=== PATIENT | male | born 1960 | race Two or more races ===

== ENCOUNTER → 2024-08-14 | Outpatient (CLI) | payer BC, OTHER, SELFPAY ==
--- NOTE | 2024-08-14 15:00 | XR_ITS ---
Examination: Abdomen sonogram, complete Date and time of exam: August 06, 2024 1446 hours INDICATIONS: Abnormal liver functions on laboratory examination performed one week ago. Technique: Multiple real-time grayscale transabdominal sonographic images of the abdomen have been obtained. Findings: Multiple gallstones Gallbladder wall 0.2 cm Common bile duct 0.4 cm Pancreatic head 2.6 cm Aorta not enlarged. Liver 14.3 cm no focal liver lesions fatty infiltration is present Normal hepatopedal portal venous flow Patent IVC Right kidney 11.3 cm cortex 2.1 cm Midpole 28 mm cyst with smaller cyst Left kidney 12.6 cm renal cortex 2.1 cm Midpole cyst 7.1 cm with smaller cysts Mild to moderate bilateral renal parenchymal scar formation Spleen 12.4 cm IMPRESSION: Cholelithiasis, negative for cholecystitis Fatty liver Bilateral benign renal cysts
== END | disposition home or self-care (01) ==
PROVIDERS: PCP Family Medicine; Referring Provider Internal Medicine Gastroenterology; Visit Provider Internal Medicine Gastroenterology
DX: K80.20 Calculus of gallbladder without cholecystitis without obstruction (principal); K76.0 Fatty (change of) liver, not elsewhere classified; N28.1 Cyst of kidney, acquired
CPT/HCPCS: 76700

== ENCOUNTER 2024-08-24 08:45 | Day surgery (SDC) | payer BC, OTHER, SELFPAY ==
[2024-08-24] VITALS (11 sets, daily range): BP systolic 100–156; BP diastolic 74–102; PULSE 102–111; RESP 11–20; TEMP 36.4–36.7; O2SAT 95–100; BMI 26.1
[2024-08-24] MEDS: DiphenhydrAMINE INJ 50 MG/ML VIAL 25 MG IV (09:49)
[2024-08-24] MEDS: RINGERS LACTATED 1000 ML 1,000 ML 20 ML IV (09:49)
[2024-08-24] MEDS: fentaNYL CIT INJ 50 mCg/ML AMP 2ML IV (09:54)
[2024-08-24] MEDS: MIDAZOLAM INJ 1 MG/ML VIAL 2 ML 2 MG IV (09:54)
[2024-08-24] MEDS: SIMETHICONE 40 MG/0.6 ML ORAL SYRINGE PO (09:55)
== END 2024-08-24 11:45 | disposition home or self-care (01) ==
PROVIDERS: PCP Family Medicine; Referring Provider Internal Medicine Gastroenterology; Visit Provider Internal Medicine Gastroenterology
PROC: 0DBE8ZX Excision of Large Intestine, Via Natural or Artificial Opening Endoscopic, Diagnostic (ICD-10-PCS; CPT 45380; principal; 2024-08-24 10:45)
DX: Z12.11 Encounter for screening for malignant neoplasm of colon (principal); D12.3 Benign neoplasm of transverse colon; D12.8 Benign neoplasm of rectum; K55.20 Angiodysplasia of colon without hemorrhage; K64.8 Other hemorrhoids; E11.9 Type 2 diabetes mellitus without complications; I10 Essential (primary) hypertension; E88.810 Metabolic syndrome
CPT/HCPCS: 45380; A4649; J1200; J2250; J3010; J7120; A9270